=== PATIENT | female | born 1990 | race Caucasian/White ===

== ENCOUNTER 2016-03-18 16:32 | Emergency (ER) | payer OTHER ==
[~2016-03-18] VITALS: Ht 157.5 cm; Wt 75.0 kg
[2016-03-18 16:34] VITALS: BP 131/75; PULSE 106; RESP 20; TEMP 99.8; O2SAT 95
[2016-03-18] MEDS ORDERED: AMOX875T PO (17:49)
[2016-03-18] MEDS ORDERED: MEDR4PAK PO (17:49)
[2016-03-18] MEDS ORDERED: BENZ100 PO (17:49)
--- NOTE | 2016-03-18 17:52 | PD ---
HPI Chief Complaint: ENT Complaint Time Seen by Provider: 17:49 Travel History International Travel<30 days: No Contact w/Intl Traveler<30days: No Traveled to known affect area: No History of Present Illness HPI 25-year-old female that presents to the ED for evaluation of right ear pain as well as cold-like symptoms. Patient has had the symptoms for the past 2-3 days. Per patient has a sore throat and cough and runny nose as well as congestion and right ear pain. She denies any chest pain or shortness of breath. Per patient she has no medical problems. She states that the pain on the ear and the throat is 7 out of 10. Denies any nausea or vomiting. No abdominal pain. No diarrhea. No allergies to medication. PFSH Past Medical History Anxiety: Yes Depression: Yes Diabetes: No Diminished Hearing: No Headaches: Yes Insomnia: Yes Psychiatric: Yes (NON COMPLIANCE. PT REPORTS HAVING " OCD") Schizophrenia: Yes LMP: 03/13/16 : 2 Para: 2 Past Surgical History Abdominal Surgery: Yes Section: Yes (X 2) Social History Alcohol Use: Yes (ON OCCASION) Tobacco Use: Yes (4-5 CIGARETTES PER DAY ) Substance Use: No Allergies-Medications (Allergen,Severity, Reaction): Coded Allergies: No Known Allergies (Unverified , 03/18/16) Reported Meds & Prescriptions Reported Meds & Active Scripts Active Review of Systems Except as stated in HPI: all other systems reviewed are Neg Physical Exam Narrative GENERAL: Well-nourished, well-developed patient in no apparent distress. SKIN: Warm and dry. HEAD: Atraumatic. Normocephalic. EYES: Pupils equal and round reactive to light and accommodation. No scleral icterus. No injection or drainage. ENT: No nasal bleeding or discharge. Mucous membranes pink and moist. Right TM is red and bulging. Left TM is clear with no sign of infection or perforation. No mastoid tenderness. Ear canals are intact bilaterally. No lymphadenopathy. Nostril mucosa is red and moist with clear mucus noted. No sinus tenderness to palpation noted. Tonsils are not enlarged or swollen. No ulvua Deviation. Tongue is midline. NECK: Trachea midline. No JVD. No meningeal signs noted CARDIOVASCULAR: Regular rate and rhythm. RESPIRATORY: No accessory muscle use. Clear to auscultation. Breath sounds equal bilaterally. Data Data Last Documented VS Vital Signs Date Time Temp Pulse Resp B/P Pulse Ox O2 Delivery O2 Flow Rate FiO2 03/18/16 16:34 99.8 106 20 131/75 95 Room Air MDM Medical Decision Making Medical Screen Exam Complete: Yes Emergency Medical Condition: Yes Medical Record Reviewed: Yes Differential Diagnosis Otitis media versus otitis externa versus sinusitis versus URI versus pneumonia Narrative Course 25-year-old female that presents to the ED for evaluation of cold-like symptoms. Patient was properly examined and was found to have signs and symptoms consistent with appears to be right otitis media. Patient will be treated for this with amoxicillin, Medrol Dosepak, Tessalon Perles. Patient was told to follow with PCP. Take OTC meds as needed. See ED worsening symptoms. Diagnosis Primary Impression: Otitis media Qualified Code: H65.01 - Right acute serous otitis media, recurrence not specified Patient Instructions: General Instructions Additional Instructions: Motrin and Tylenol for pain and fever. You can use [id number] antihistamine as well as well as Mucinex as needed for runny nose and congestion. Cough drops for cough as needed. Drink plenty of fluids. Follow-up with PCP. See ED for worsening symptoms. Med/Other Pt SpecificInfo: Prescription(s) given Scripts Benzonatate (Tessalon Perles)100 Mg Syt217 Mg PO TID PRN (COUGH) #20 CAP Ref 0 Prov:Mike Francisco MD 03/18/16 Methylprednisolone Dosepak (Medrol Dosepak)4 Mg Dspk4 Mg PO DIRECTED #1 DSPK Ref 0 Per Pharmacist direction Prov:Mike Francisco MD 03/18/16 Amoxicillin 875 Mg Bhi773 Mg PO BID 10 Days Prov:Mike Francisco MD 03/18/16 Disposition: 01 DISCHARGE HOME Condition: Stable Lopez Silva Mar 18, 2016 17:52
== END 2016-03-18 18:17 | disposition home or self-care (01) ==
LOC: NEPB 16:32
DX: H66.91 Otitis media, unspecified, right ear (principal)
CPT/HCPCS: 99283

== ENCOUNTER 2016-04-04 08:17 | Emergency (ER) | payer OTHER ==
[~2016-04-04] VITALS: Ht 157.5 cm; Wt 80.0 kg
[~2016-04-04 08:17] MED LIST: AMOX875T PO; BENZ100 PO; MEDR4PAK PO
[2016-04-04 08:20] VITALS: BP 144/73; PULSE 81; RESP 22; TEMP 97.9; O2SAT 100
--- NOTE | 2016-04-04 10:19 | PD ---
HPI Chief Complaint: ENT Complaint Time Seen by Provider: 10:19 Travel History International Travel<30 days: No Contact w/Intl Traveler<30days: No Traveled to known affect area: No PFSH Past Medical History Anxiety: Yes Depression: Yes Diabetes: No Diminished Hearing: No Headaches: Yes Insomnia: Yes Psychiatric: Yes (NON COMPLIANCE. PT REPORTS HAVING " OCD") Schizophrenia: Yes ?: Not LMP: 03/04/16 : 2 Para: 2 Past Surgical History Abdominal Surgery: Yes Section: Yes (X 2) Social History Alcohol Use: Yes (ON OCCASION) Tobacco Use: Yes (4-5 CIGARETTES PER DAY ) Substance Use: No Allergies-Medications (Allergen,Severity, Reaction): Coded Allergies: No Known Allergies (Unverified , 04/04/16) Reported Meds & Prescriptions Reported Meds & Active Scripts Active Tessalon Perles (Benzonatate) 100 Mg Cap 100 Mg PO TID PRN Data Data Last Documented VS Vital Signs Date Time Temp Pulse Resp B/P Pulse Ox O2 Delivery O2 Flow Rate FiO2 04/04/16 08:20 97.9 81 22 144/73 100 Room Air MDM Medical Decision Making Medical Screen Exam Complete: Yes Emergency Medical Condition: Yes Medical Record Reviewed: Yes Nichole Garcia Apr 04, 2016 10:19
--- NOTE | 2016-04-04 10:25 | PD ---
HPI Chief Complaint: ENT Complaint Time Seen by Provider: 10:25 Travel History International Travel<30 days: No Contact w/Intl Traveler<30days: No Traveled to known affect area: No History of Present Illness HPI 25-year-old female presents to the emergency Department with complaint of continued right ear pain after being treated for otitis media approximately 2 weeks ago. She was prescribed amoxicillin and took the full course of antibiotics. Reports improvement in symptoms other than the continued ear pain. She denies fever, chills, nausea, vomiting. Denies sore throat, nasal congestion. No known aggravating or relieving factors. Has not tried any additional medications or treatments to alleviate her pain. No known allergies. Denies significant past medical history. No other modifying factors or associated signs and symptoms. History Past Medical Histgory LMP: 03/04/16 Social History Alcohol Use: Yes (ON OCCASION) Tobacco Use: Yes (4-5 CIGARETTES PER DAY ) Allergies-Medications (Allergen,Severity, Reaction): Coded Allergies: No Known Allergies (Unverified , 04/04/16) Reported Meds & Prescriptions Reported Meds & Active Scripts Active Tessalon Perles (Benzonatate) 100 Mg Cap 100 Mg PO TID PRN Review of Systems Except as stated in HPI: all other systems reviewed are Neg Physical Exam Narrative GENERAL: Well-nourished, well-developed female patient, in no acute distress; afebrile, nontoxic-appearing SKIN: Warm and dry. No rash. HEAD: Atraumatic. Normocephalic. EYES: Pupils equal and round at 3 mm with brisk reaction. No scleral icterus. No injection or drainage. PERRLA. ENT: Mucosa pink and moist. No erythema or exudates. No uvular edema. No uvular , palatal, or tonsillar deviation. Airway patent. EARS: Bilateral pinnae and external canals appear within normal limits. Bilateral tympanic membranes without erythema, dullness or perforation. NECK: Trachea midline. No lymphadenopathy. CARDIOVASCULAR: Regular rate and rhythm. No murmur appreciated. RESPIRATORY: No accessory muscle use. Clear to auscultation. Breath sounds equal bilaterally. GASTROINTESTINAL: Abdomen soft, non-tender, nondistended. Hepatic and splenic margins not palpable. Bowel sounds are active 4 quadrants. MUSCULOSKELETAL: No obvious deformities. No clubbing. No cyanosis. No edema. NEUROLOGICAL: Awake and alert. Oriented 3. No obvious cranial nerve deficits. Motor grossly within normal limits. Normal speech. Moves all extremities. 5/5 strength to all extremities. PSYCHIATRIC: Appropriate mood and affect; insight and judgment normal. Data Data Last Documented VS Vital Signs Date Time Temp Pulse Resp B/P Pulse Ox O2 Delivery O2 Flow Rate FiO2 04/04/16 08:20 97.9 81 22 144/73 100 Room Air MDM Medical Screen Exam Complete: Yes Emergency Medical Condition: No Differential Diagnosis Otitis media, perforation, medical clearance Narrative Course 25-year-old female with continued right ear pain after being treated with amoxicillin for otitis media on March 18. Physical exam there are no signs of otitis media, otitis externa, or perforation. I offered the patient a non- narcotic pain and she declined at this time. Vital signs are stable and the patient is stable for outpatient follow-up and treatment. The patient has no urgent or emergent medical complaints. There is no emergent or urgent medical need at this time. I instructed the patient to follow up with their primary care provider. A medical screening exam was performed: At the time of evaluation the presenting medical condition was determined not to be of an emergent nature. The patient was given the option of receiving additional care, but declined. Patient was given options for additional community resources from which to obtain care. The Patient Has Been advised to seek medical attention for their presenting complaint. The patient has been advised to return to the ER at any time if an emergent condition develops. Primary Impression: Encounter for medical screening examination Condition: Stable Nichole Garcia Apr 04, 2016 10:25
== END 2016-04-04 10:39 | disposition left against medical advice (07) ==
LOC: NEPB 08:17
DX: H92.01 Otalgia, right ear (principal)
CPT/HCPCS: 99281

== ENCOUNTER 2016-12-07 16:03 | Emergency (ER) | payer OTHER ==
[~2016-12-07] VITALS: Ht 160 cm; Wt 75.0 kg
[~2016-12-07 16:03] MED LIST changes: -AMOX875T PO; -MEDR4PAK PO
[2016-12-07 16:05] VITALS: BP 137/67; PULSE 99; RESP 13; TEMP 98.4; O2SAT 97
[2016-12-07] MEDS ORDERED: MUPI2OIN TOPICAL (16:57)
--- NOTE | 2016-12-07 17:10 | PD ---
HPI Chief Complaint: ENT Complaint Time Seen by Provider: 16:45 Travel History International Travel<30 days: No Contact w/Intl Traveler<30days: No Traveled to known affect area: No PFSH Past Medical History Anxiety: Yes Depression: Yes Diabetes: No Diminished Hearing: No Headaches: Yes Insomnia: Yes Psychiatric: Yes (NON COMPLIANCE. PT REPORTS HAVING " OCD") Schizophrenia: Yes ?: Unknown : 2 Para: 2 Past Surgical History Abdominal Surgery: Yes Section: Yes (X 2) Social History Alcohol Use: Yes (ON OCCASION) Tobacco Use: Yes (4-5 CIGARETTES PER DAY ) Substance Use: No Allergies-Medications (Allergen,Severity, Reaction): Coded Allergies: No Known Allergies (Unverified , 04/04/16) Reported Meds & Prescriptions Reported Meds & Active Scripts Active Mupirocin Topical (Mupirocin) 2 % Oint 1 Applic TOPICAL BID Review of Systems Except as stated in HPI: all other systems reviewed are Neg Data Data Last Documented VS Vital Signs Date Time Temp Pulse Resp B/P (MAP) Pulse Ox O2 Delivery O2 Flow Rate FiO2 12/07/16 16:05 98.4 99 13 137/67 (90) 97 Orders Orders Ed Discharge Order (12/07/16 17:10) MDM Medical Decision Making Medical Screen Exam Complete: Yes Emergency Medical Condition: Yes Medical Record Reviewed: Yes Diagnosis Ruled Out: Impetigo Referrals: Primary Care Physician Nancy Leone Dec 07, 2016 17:10
--- NOTE | 2016-12-07 17:34 | PD ---
HPI Chief Complaint: ENT Complaint Time Seen by Provider: 16:45 Travel History International Travel<30 days: No Contact w/Intl Traveler<30days: No Traveled to known affect area: No History of Present Illness HPI 25-year-old female presents to the emergency room for evaluation of right ear pain, sore throat, nonproductive cough, and fever for the past few days. Earache is the most severe. Sore throat feels like she is swallowing glass. Maximum to discharge home was 101.2 last night. Patient has been taking DayQuil and NyQuil for symptoms but has not taken any medications today. She has a [id number] who was diagnosed with strep last week. Patient states her children are sick with similar symptoms. No chronic medical conditions or daily medications. PFSH Past Medical History Anxiety: Yes Depression: Yes Diabetes: No Diminished Hearing: No Headaches: Yes Insomnia: Yes Psychiatric: Yes (NON COMPLIANCE. PT REPORTS HAVING " OCD") Schizophrenia: Yes ?: Unknown : 2 Para: 2 Past Surgical History Abdominal Surgery: Yes Section: Yes (X 2) Social History Alcohol Use: Yes (ON OCCASION) Tobacco Use: Yes (4-5 CIGARETTES PER DAY ) Substance Use: No Allergies-Medications (Allergen,Severity, Reaction): Coded Allergies: No Known Allergies (Unverified , 04/04/16) Reported Meds & Prescriptions Reported Meds & Active Scripts Active Review of Systems Except as stated in HPI: all other systems reviewed are Neg Physical Exam Narrative GENERAL: Well-nourished, well-developed female in no acute distress. Afebrile. Ambulatory. SKIN: Focused skin assessment warm/dry. HEAD: Normocephalic. EYES: No scleral icterus. No injection or drainage. NECK: Supple, trachea midline. No JVD or lymphadenopathy. ENT: Mucosa pink and moist. Mild to moderate erythema without edema or exudates. No uvular edema. No uvular, palatal, or tonsillar deviation. Airway patent. Nasal turbinates appear normal without nasal blood, purulent drainage or septal hematoma. EARS: Bilateral pinnae and external canals appear within normal limits. Bilateral tympanic membranes without erythema, dullness or perforation. CARDIOVASCULAR: Regular rate and rhythm without murmurs, gallops, or rubs. RESPIRATORY: Breath sounds equal bilaterally. No accessory muscle use. No crackles, rales, wheezes, or rhonchi. Data Data Last Documented VS Vital Signs Date Time Temp Pulse Resp B/P (MAP) Pulse Ox O2 Delivery O2 Flow Rate FiO2 12/07/16 16:05 98.4 99 13 137/67 (90) 97 Orders Orders Ed Discharge Order (12/07/16 17:10) Group A Rapid Strep Screen (12/07/16 17:30) Strep Culture (Group A) (12/07/16 17:35) MDM Medical Decision Making Medical Screen Exam Complete: Yes Emergency Medical Condition: Yes Medical Record Reviewed: Yes Differential Diagnosis Upper respiratory infection, otitis media, otitis externa, streptococcal pharyngitis Narrative Course 25-year-old otherwise healthy female presents to the emergency room for evaluation of nonproductive cough, sore throat, earache, and fever for the past 2 days. Patient is afebrile and well-appearing in the emergency room. Resting comfortably. Physical exam reveals mild to moderately erythematous pharynx without edema or exudate. Right tympanic membranes is not erythematous or dull. Lung sounds are clear and equal bilaterally. Rapid strep is negative. This is viral upper respiratory infection. Patient was reassured and told to follow-up with her primary care physician or return for worsening symptoms. She understands and agrees to plan. Diagnosis Primary Impression: Upper respiratory infection Qualified Codes: J00 - Acute nasopharyngitis [common cold] Referrals: Primary Care Physician Additional Instructions: Rest and drink plenty of fluids. Take ibuprofen with food as directed, as needed for pain. Follow-up with a primary care physician. Return to the emergency room for worsening symptoms. Disposition: 01 DISCHARGE HOME Condition: Stable Nancy Leone Dec 07, 2016 17:34
== END 2016-12-07 18:48 | disposition home or self-care (01) ==
LOC: NEPK 16:03
DX: J00 Acute nasopharyngitis [common cold] (principal); F17.210 Nicotine dependence, cigarettes, uncomplicated
CPT/HCPCS: 87081; 87880; 99283

== ENCOUNTER 2017-03-19 12:20 | Emergency (ER) | payer OTHER ==
[~2017-03-19] VITALS: Ht 157.5 cm; Wt 79.5 kg
[2017-03-19 16:37] VITALS: BP 136/87; PULSE 107; RESP 18; TEMP 98.9; O2SAT 100
[2017-03-19] MEDS ORDERED: AMOX500C PO (17:47)
[2017-03-19] MEDS ORDERED: OSEL75 PO (17:47)
--- NOTE | 2017-03-19 17:48 | PD ---
HPI Chief Complaint: ENT Complaint Time Seen by Provider: 17:20 Travel History International Travel<30 days: No Contact w/Intl Traveler<30days: No Traveled to known affect area: No History of Present Illness HPI 26-year-old female here with flulike illness and right ear pain. Patient reports right ear pain 3-4 days. Fever, sore throat, body aches times one day. She reports her children are currently being treated for influenza a. Symptom severity is moderate. No aggravating factors. Slightly alleviated with OTC Tylenol and ibuprofen. PFSH Past Medical History Anxiety: Yes Depression: Yes Diabetes: No Diminished Hearing: No Headaches: Yes Insomnia: Yes Psychiatric: Yes (NON COMPLIANCE. PT REPORTS HAVING " OCD") Schizophrenia: Yes Tetanus Vaccination: < 5 Years ?: Not : 2 Para: 2 Past Surgical History Abdominal Surgery: Yes Section: Yes (X 2) Social History Alcohol Use: Yes (ON OCCASION) Tobacco Use: Yes (4-5 CIGARETTES PER DAY ) Substance Use: No Allergies-Medications (Allergen,Severity, Reaction): Coded Allergies: No Known Allergies (Unverified Adverse Reaction, Unknown, 03/19/17) Reported Meds & Prescriptions Reported Meds & Active Scripts Active Amoxicillin 500 Mg Cap 500 Mg PO TID 10 Days Tamiflu (Oseltamivir Phosphate) 75 Mg Cap 75 Mg PO BID 5 Days Review of Systems Except as stated in HPI: all other systems reviewed are Neg General / Constitutional: Positive: Fever Eyes: No: Visual changes HENT: Positive: Sore Throat, Earache Cardiovascular: No: Chest Pain or Discomfort Respiratory: Positive: Cough Gastrointestinal: No: Abdominal Pain Genitourinary: No: Dysuria Musculoskeletal: Positive: Myalgias Skin: No Rash Neurologic: No: Weakness Physical Exam Narrative GENERAL: Alert well-appearing 26-year-old male SKIN: Warm and dry. No rash HEAD: Normocephalic. EYES: Pupils equal, round, reactive to light. EOMs intact. No injection or drainage. Ear/nose/throat: Right TM erythema, bulging, loss of landmarks. Clear nasal discharge. Mild pharyngeal erythema without tonsillar hypertrophy or exudate. NECK: Supple, trachea midline. No meningismus CARDIOVASCULAR: Regular rate and rhythm RESPIRATORY: Breath sounds equal bilaterally. No accessory muscle use. GASTROINTESTINAL: Abdomen soft, non-tender, nondistended. MUSCULOSKELETAL: No cyanosis, or edema. BACK: No CVA tenderness. Data Data Last Documented VS Vital Signs Date Time Temp Pulse Resp B/P (MAP) Pulse Ox O2 Delivery O2 Flow Rate FiO2 03/19/17 16:37 98.9 107 18 136/87 (103) 100 Orders Orders Ed Discharge Order (03/19/17 17:48) MDM Medical Decision Making Medical Screen Exam Complete: Yes Emergency Medical Condition: Yes Differential Diagnosis Influenza, otitis media, bronchitis, pneumonia Narrative Course This is a 26-year-old female here with flulike illness and exposure to the flu. She also has significant right TM erythema. Patient will be treated for both influenza and acute otitis media. Diagnosis Primary Impression: Otitis media Qualified Codes: H66.90 - Otitis media, unspecified, unspecified ear Additional Impression: Influenza-like illness Referrals: Primary Care Physician Departure Forms: Tests/Procedures, Work Release Enter return to work date: Mar 22, 2017 Additional Instructions: Tylenol and ibuprofen for pain and fever. Stable hydrated by drinking plenty of fluids. Medications as prescribed. Return if he developed new or worsening symptoms. Scripts Amoxicillin (Amoxicillin) 500 Mg Cap 500 MG PO TID for Infection for 10 Days, CAP 0 Refills Prov: Deb Brewer 03/19/17 Oseltamivir (Tamiflu) 75 Mg Cap 75 MG PO BID for Mgmt Viral Infection for 5 Days, #10 CAP 0 Refills Prov: Deb Brewer 03/19/17 Deb Brewer Mar 19, 2017 17:48
== END 2017-03-19 18:21 | disposition home or self-care (01) ==
LOC: NEPK 12:20
DX: H66.91 Otitis media, unspecified, right ear (principal); J11.1 Influenza due to unidentified influenza virus with other respiratory manifestations; F17.210 Nicotine dependence, cigarettes, uncomplicated
CPT/HCPCS: 99284